=== PATIENT | male | born 1990 ===

== ENCOUNTER 2018-04-11 23:27 | Emergency (ER) | payer OTHER ==
[~2018-04-11] VITALS: Ht 177.8 cm; Wt 121.6 kg
[2018-04-11 23:34] VITALS: Ht 177.8 cm; Wt 121.6 kg
[2018-04-12 00:31] VITALS: BP 147/64
== END 2018-04-12 00:31 | disposition home or self-care (01) ==
LOC: ED 23:27
DX: K64.4 Residual hemorrhoidal skin tags (principal); R03.0 Elevated blood-pressure reading, without diagnosis of hypertension